=== PATIENT | female | born 1960 | race Caucasian/White ===

== ENCOUNTER → 2021-05-07 | Outpatient (CLI) | payer SELFPAY ==
--- NOTE | 2021-05-08 00:34 | MR ---
EXAMINATION TYPE: MR knee RT wo con DATE OF EXAM: 05/07/2021 COMPARISON: 05/03/2014 HISTORY: Right knee pain There is metal artifact from reconstructive surgery on the anterior cruciate ligament. The anterior c ruciate ligament appears to be intact. The posterior cruciate ligament is intact. Exam limited by met al artifact. There is some thinning of the anterior horn of the lateral meniscus with horizontal tear . There is horizontal tear in the posterior horn of the medial meniscus without extension to the serena cular surface. The collateral ligaments appear intact. There is no evidence of a fracture. There is no significant k nee joint effusion. The patella is intact. IMPRESSION: Horizontal tear of the anterior horn lateral meniscus unchanged. Intrasubstance tear of the posterior horn of the medial meniscus is unchanged. No evidence of ligamentous tear. There is overall not a si gnificant change compared to old exam.
== END | disposition home or self-care (01) ==
LOC: RADMRIMAIN 11:02
PROVIDERS: ATTEND Orthopaedic Surgery
DX: M23.341 Other meniscus derangements, anterior horn of lateral meniscus, right knee (principal); M23.321 Other meniscus derangements, posterior horn of medial meniscus, right knee

== ENCOUNTER → 2021-05-27 | Outpatient (CLI) | payer SELFPAY ==
[2021-05-27 13:09] LABS: Basophils % (A) 1 %; Eosinophils # (A) 0.1 k/uL (0-0.7); Eosinophils % (A) 1 %; HCT 41.1 % (34.0-46.0); HGB 13.4 gm/dL (11.4-16.0); Lymphocytes # (A) 1.9 k/uL (1.0-4.8); Lymphocytes % (A) 29 %; MCH 30.3 pg (25.0-35.0); MCHC 32.7 g/dL (31.0-37.0); MCV 92.7 fL (80.0-100.0); Mean Platelet Volume 7.4; Monocytes # (A) 0.3 k/uL (0-1.0); Monocytes % (A) 4 %; Neutrophils # (A) 4.3 k/uL (1.3-7.7); Neutrophils % (A) 64 %; Platelet Count 254 k/uL (150-450); RBC 4.43 m/uL (3.80-5.40); RDW 12.5 % (11.5-15.5); WBC 6.6 k/uL (3.8-10.6)
[2021-05-27 13:29] LABS: Potassium 4.1 mmol/L (3.5-5.1)
== END | disposition home or self-care (01) ==
LOC: LABPAT 12:15
PROVIDERS: ATTEND Orthopaedic Surgery
DX: Z01.812 Encounter for preprocedural laboratory examination (principal); M23.91 Unspecified internal derangement of right knee
CPT/HCPCS: 36415; 80051; 85025

== ENCOUNTER 2021-06-06 08:38 | Day surgery (SDC) | payer SELFPAY ==
[2021-06-04 15:43] VITALS: BMI 23.0
--- NOTE | 2021-06-05 12:12 | HP ---
HISTORY AND PHYSICAL CHIEF COMPLAINT: Right knee pain. HISTORY OF PRESENT ILLNESS: Patient is a 61-year-old female who presents with right knee pain for the past several months. She notes swelling, giving way, and occasional locking. She notes it significantly limits her activities. She has a history of a right knee ACL reconstruction along with a previous right knee arthroscopy. She notes the pain limits her normal function and activities. She has been limping. PAST MEDICAL HISTORY: Negative. PAST SURGICAL HISTORY: Significant for right knee ACL reconstruction with subsequent knee arthroscopy. In addition, carpal tunnel release, tubal ligation, and appendectomy. FAMILY HISTORY: Significant for cancer. SOCIAL HISTORY: Negative for current tobacco or alcohol use. CURRENT MEDICATION: Ibuprofen. ALLERGIES: She denies drug allergies. REVIEW OF SYSTEMS: 16-point review of systems otherwise is reviewed and is noncontributory. PHYSICAL EXAMINATION: On examination, the patient is approximately 5 foot 3, 130 pounds of mesomorphic habitus. HEENT exam is nonfocal. NECK is supple. She has painless passive motion of the right hip. Straight leg raise is negative. Active motion right knee -8 to 130 degrees of flexion. She has a trace effusion. She is tender about the medial greater than lateral joint line. Collaterals are stable, Fe is negative, Yesi's elicits medial pain. Her distal neurovascular exam appears intact in the right lower extremity. MRI report from 05/07/2021 of the right knee shows anterior lateral meniscal tear in addition to increased signal on the posterior horn of the medial meniscus. The ACL graft appears to be intact. IMPRESSION: 1. Internal derangement right knee with symptomatic medial and lateral meniscal tears. 2. History of ACL reconstruction. RECOMMENDATIONS: I talked to the patient at length regarding her condition and treatment options. At this point, she is quite symptomatic and opts to proceed with surgery. We will plan to proceed with arthroscopic evaluation with possible partial medial and lateral meniscectomy. We will likely perform that as an outpatient procedure. Risks and benefits were discussed at length in layman's terms. MMODL / IJN: [id number] /
[2021-06-06] MEDS ORDERED: LIDOCAINE 1% (10MG/ML) FOR IV START INTRADERMA PRN (09:07)
[2021-06-06] MEDS ORDERED: DEXAMETHASONE SOD PHOSPHATE 4 MG/ML 1 ML VIAL IV ONE (09:07)
[2021-06-06] MEDS ORDERED: LACTATED RINGERS 1,000 ML IV SCH (09:07)
[2021-06-06] MEDS ORDERED: ONDANSETRON 4 MG/2 ML VIAL IVP ONE (09:07)
[2021-06-06] MEDS ORDERED: MIDAZOLAM 2 MG/2 ML VIAL IV PRN (09:07)
[2021-06-06] MEDS ORDERED: MIDAZOLAM 2 MG/2 ML VIAL ONE (10:13)
[2021-06-06] MEDS ORDERED: EPINEPHrine (PF) 1 ML in SODIUM CHLORIDE 0.9% IRRIGATIO 3,000 ML IRRIGATION ONE ×4 (10:13)
[2021-06-06] MEDS ORDERED: LIDOCAINE 1% INJ 10MG/ML (20 ML MDV) ONE (10:13)
[2021-06-06] MEDS ORDERED: PROPOFOL 10 MG/ML 20 ML VIAL IV ONE (10:13)
[2021-06-06] MEDS ORDERED: fentaNYL (PF) 50 MCG/ML 2 ML AMP ONE (10:13)
[2021-06-06] MEDS ORDERED: KETOROLAC 15 MG/ML 1 ML VIAL ONE (10:13)
--- NOTE | 2021-06-06 11:00 | P.OP ---
Date of Procedure: 06/06/21 Preoperative Diagnosis: Right knee internal derangement Postoperative Diagnosis: Right knee anterolateral meniscal tear/grade 3 chondral injury lateral patella facet Procedure(s) Performed: Right knee arthroscopic partial lateral meniscectomy/patellar chondroplasty Anesthesia: COLTON Surgeon: Anson Mendenhall Estimated Blood Loss (ml): 10 Pathology: none sent Condition: stable Disposition: PACU Indications for Procedure: The patient is a 61-year-old female presents with progressive right knee pain and mechanical symptoms despite conservative measures. A discussion of the risks and benefits of operative intervention versus continued conservative measures was made with patient. She opted to proceed with surgery. Operative risks to include infection, neurovascular injury, development of blood clots, possible incomplete resolution of symptoms, possible worsening symptoms and need for subsequent procedures was discussed. Informed consent was obtained. Operative Findings: As below Description of Procedure: The patient was brought to the operating room, and after induction of general anesthesia examined the right knee. Collaterals were stable, Fe was negative, and posterior drawer was negative. The right lower extremity was prepped and draped in a normal fashion. A superior lateral portal was made through a 3 mm skin incision superior and lateral to the patella. This was used for outflow. A lateral portal was made through a 5 mm vertical skin incision lateral to the patella tendon above the joint line. Diagnostic arthroscopy was performed. On inspection of the medial compartment, the medial meniscus was stable and intact. Mild grade 2 chondral changes were noted diffusely.. On inspection of the notch, the anterior cruciate ligament graft appeared to be intact. On inspection of the lateral compartment, there was a complex tear involving the anterior horn of the lateral meniscus in the white-red junction. This was debrided back to stable base with straight baskets and a motorized shaver. The remaining lateral meniscus was stable and intact. Again there were diffuse grade 2 chondral changes. On inspection of the patellofemoral articulation, a grade 3 chondral injury was noted involving the lateral patellar facet. There is loose chondral fragment debrided back to a stable base with a motorized shaver.. The gutters were clear debris. The knee was then thoroughly irrigated. The portals were closed with Steri-Strips. A sterile dressing was applied in addition to a compression stocking. The patient was awoken from general anesthesia and transferred to recovery room in good condition. Blood loss was estimated at 10 mL. No complications were incurred.
[2021-06-06 11:03] VITALS: TEMP 97
[2021-06-06] MEDS: HYDROmorphone 0.5 MG/0.5 ML SYRINGE IVP PRN ×2 (11:08→11:27)
[2021-06-06 12:19] VITALS: BP 134/85; PULSE 70; RESP 16
== END 2021-06-06 13:05 | disposition home or self-care (01) ==
LOC: OR 08:38
PROVIDERS: ATTEND Orthopaedic Surgery
DX: M23.241 Derangement of anterior horn of lateral meniscus due to old tear or injury, right knee (principal); S83.31XA Tear of articular cartilage of right knee, current, initial encounter; X58.XXXA Exposure to other specified factors, initial encounter; M23.41 Loose body in knee, right knee; Z98.890 Other specified postprocedural states; K21.9 Gastro-esophageal reflux disease without esophagitis; Z98.51 Tubal ligation status; Z90.89 Acquired absence of other organs; Z80.9 Family history of malignant neoplasm, unspecified; Z79.1 Long term (current) use of non-steroidal anti-inflammatories (NSAID)
CPT/HCPCS: 29881; J2250; J1100; J2405; J0690; J0171; J2001; J3010; J1885; J2704; J1170

== ENCOUNTER → 2021-07-30 | Outpatient (CLI) | payer SELFPAY | END | disposition home or self-care (01) | LOC: LABPAT 10:06 | PROVIDERS: ATTEND Orthopaedic Surgery | DX: Z01.812 Encounter for preprocedural laboratory examination (principal); M17.11 Unilateral primary osteoarthritis, right knee; Z22.322 Carrier or suspected carrier of Methicillin resistant Staphylococcus aureus | CPT/HCPCS: 87070 ==

== ENCOUNTER 2021-08-12 08:47 | Day surgery (SDC) | payer SELFPAY ==
[2021-08-08 16:20] VITALS: BMI 24.4
--- NOTE | 2021-08-11 10:06 | HP ---
HISTORY AND PHYSICAL CHIEF COMPLAINT: Right knee pain. HISTORY OF PRESENT ILLNESS: The patient is a 61-year-old female who presents with progressive right knee pain for the past several years, worsening recently. She is having pain with any attempted weightbearing activities. She notes intermittent swelling, locking, and giving out. She has tried medications in addition to injections, with only partial temporary relief. She has had multiple arthroscopic procedures. PAST MEDICAL HISTORY: Significant for arthritis and borderline hypertension. PAST SURGICAL HISTORY: Significant for right knee ACL reconstruction along with multiple knee arthroscopies, carpal tunnel release, bilateral tubal ligation and appendectomy. CURRENT MEDICATIONS: Ibuprofen. ALLERGIES: SHE DENIES DRUG ALLERGIES. FAMILY HISTORY: Significant for cancer. SOCIAL HISTORY: Negative for current tobacco or alcohol use. REVIEW OF SYSTEMS: Sixteen-point review of systems is otherwise reviewed and noncontributory. PHYSICAL EXAMINATION: On examination, the patient is approximately 5 feet 3 inches, 128 pounds of mesomorphic habitus. HEENT exam is nonfocal. Neck is supple. She has painless passive motion of the right hip. Straight-leg raise is negative. Active motion of right knee minus 14 to 120 degrees of flexion. Fe's 1+. She is tender about the medial joint line. Collaterals are stable. Posterior drawer is negative. Her distal neurovascular exam appears intact in the right lower extremity. X-rays to include weightbearing, notch, lateral and Merchant views of the right knee obtained in the office show severe lateral compartment narrowing. IMPRESSION: 1. Right knee severe lateral compartment osteoarthrosis. 2. History of right knee ACL reconstruction with multiple arthroscopies. RECOMMENDATIONS: I talked to the patient at length regarding her condition along with treatment options. At this point she notes continued worsening of her symptoms despite adequate conservative measures. After thorough discussion, she opted to proceed with surgery. We will plan to proceed with right total knee arthroplasty. We will likely institute DVT prophylaxis postoperatively. MMODL / IJN: [id number] /
[~2021-08-12 08:47] MED LIST: ACETAMINOPHEN TAB 500 MG TAB PO PRN; DEXAMETHASONE SOD PHOSPHATE 4 MG/ML 1 ML VIAL IV ONE; HYDROmorphone 0.5 MG/0.5 ML SYRINGE IVP PRN; MELOXICAM 7.5 MG TAB PO PRN; ONDANSETRON 4 MG/2 ML VIAL IVP ONE; ROPIVACAINE/EPI/CLONIDINE/KET 50 ML SYRINGE MISCELLANE PRN; TRANEXAMIC ACID 1,000 MG in SODIUM CHLORIDE 0.9% 100 ML IVPB PRN
[2021-08-12] MEDS: LACTATED RINGERS 1,000 ML IV SCH ×2 (09:32→22:59)
[2021-08-12] MEDS ORDERED: fentaNYL (PF) 50 MCG/ML 2 ML AMP IVP ONE (10:26)
[2021-08-12] MEDS ORDERED: MIDAZOLAM 2 MG/2 ML VIAL IVP ONE (10:46)
[2021-08-12] MEDS ORDERED: fentaNYL (PF) 50 MCG/ML 2 ML AMP ONE (10:48)
[2021-08-12] MEDS ORDERED: SODIUM CHLORIDE 0.9% 100 ML BAG ONE (10:48)
[2021-08-12] MEDS ORDERED: ROPIVACAINE 5 MG/ML 30 ML VIAL ONE (10:48)
[2021-08-12] MEDS ORDERED: MIDAZOLAM 2 MG/2 ML VIAL ONE (10:48)
[2021-08-12] MEDS ORDERED: TRANEXAMIC ACID 1,000 MG/10 ML VIAL ONE (10:48)
[2021-08-12] MEDS ORDERED: PROPOFOL 10 MG/ML 20 ML VIAL IV ONE (10:48)
[2021-08-12] MEDS ORDERED: ceFAZolin 1,000 MG in SODIUM CHLORIDE 0.9% 1,000 ML IRRIGATION ONE (11:19)
[2021-08-12] MEDS ORDERED: LACTATED RINGERS 1,000 ML IV ONE (12:13)
[2021-08-12] MEDS ORDERED: HYDROmorphone 0.5 MG/0.5 ML SYRINGE IVP PRN (12:26)
[2021-08-12] MEDS ORDERED: NALOXONE 0.4 MG/ML 1 ML VIAL IV PRN (12:26)
--- NOTE | 2021-08-12 12:51 | P.OP ---
Date of Procedure: 08/12/21 Preoperative Diagnosis: Right knee severe tricompartmental osteoarthrosis Postoperative Diagnosis: Same in addition to retained hardware right proximal tibia Procedure(s) Performed: Right total knee arthroplastycementedcruciate retaining Removal hardware right proximal tibiainterference screw Implants: Depuy Attune size 5 cemented femoral component, size 4 cemented tibial component, 9 mm articular surface, 32 mm cemented patellar component. Anesthesia: spinal Surgeon: Anson Mendenhall Professional Services Manager #1: Tai Burrell Estimated Blood Loss (ml): 50 Pathology: other (Bone fragments) Condition: stable Disposition: PACU Indications for Procedure: The patient's a 61-year-old female who presents with progressive right knee pain secondary to osteoarthrosis despite conservative measures. A discussion of the risks and benefits of operative intervention versus continued conservative measures was made with patient. She opted to proceed with surgery. Operative risks to include infection, neurovascular injury, development of blood clots, fracture, component loosening/failure need for subsequent procedures was discussed. Informed consent was obtained. Operative Findings: As below Description of Procedure: The patient was brought to the operating room, and after induction of spinal anesthesia the right lower extremity was prepped and draped in a normal fashion. The tourniquet was inflated to 270 mmHg. A longitudinal incision extending 3 finger breaths above the superior pole of the patella extending to the medial aspect the tibial tubercle was then made. The skin and subcutaneous tissues were divided sharply. Electrocautery was used for hemostasis. A medial parapatellar arthrotomy was then performed. The medial soft tissues to include the superficial and deep portions of the medial collateral ligament as well as the medial hamstring tendons were elevated subperiosteally. The proximal medial tibia osteophytes were carefully removed. The patella was everted. The knee was flexed. A portion of the retropatellar fat pad was excised sharply. The anterior cruciate ligament was sacrificed. A starting hole was made in the distal femur 1 cm anterior to the posterior cruciate origin. An intramedullary femoral guide was gently inserted planning on 5 valgus distal cut with 9 mm distal resection. The cutting block was pinned in place. The distal cut was then made. The posterior referencing sizing guide was utilized. 3 of external rotation was built into the system and verified off the trans- epicondylar axis and the posterior condyles. I felt size 5 narrow was most appropriate. The cutting block was pinned in place. The anterior, posterior, and chamfer cuts were then made. The bone fragments were removed. A sulcus cut was then made with the appropriate guide. The trial size 5 narrow femoral component was then placed and was fully seated. There was good anterior to posterior and medial to lateral fit. The distal peg holes were then drilled. The trial component was then removed. Attention was then paid towards preparing the proximal tibia. An extra medullary guide was utilized in line with the tibial shaft and second metatarsal distally. A 7 posterior slope was planned. I planned on 2 mm resection from the medial compartment. The cutting block was pinned in place. The proximal tibial cut was then made. The bone was removed in one fragment. The remnants of the medial and lateral menisci were excised the capsule junction with electrocautery. The tibia sized most appropriately at size for. The posterior osteophytes off the distal femur were carefully removed with a curved osteotome. The trial tibial and femoral components were placed along with a 9 millimeters articular surface. I was able to obtain full flexion and extension with good stability with varus and valgus stress. After several flexion and extension cycles, the tibial rotation was marked with electrocautery in line with the medial one third of the tibial tubercle. Attention was then paid towards preparing the patella. A patella reamer was utilized taking this down to 14 mm of bone stock. A good flush cut was made. The patella sized most appropriately at 32 millimeters. The peg holes were then drilled. The trial component was placed. The knee was taken through a range of motion. I had good patellofemoral tracking with no hands technique. The trial components were then removed. The tibia was prepared in the appropriate rotation with appropriate drill and keel punch after removal of the proximal tibial interference screw. The flexion and extension gaps were checked and felt to be symmetric. The bony surfaces were prepared with pulsatile lavage and dried. The deep tibial component was then cemented in place and was fully seated. Excess cement was removed. The femoral component was cemented in place and was fully seated. Again excess cement was removed. The trial 9 millimeters surface was then inser joya in the knee was put in full extension. The patella component was cemented in place. After the cement had sufficiently hardened, the knee was again taken through a range of motion. Again there was good stability in flexion and extension with varus and valgus stress. The trial articular surface was then removed. The final articular surface was placed and was impacted. Care was taken to avoid any soft tissue interposition. Pulsatile lavage was again utilized. The tourniquet was deflated with approximately 60 minutes total tourniquet time. There was minimal drainage therefore a deep drain was not placed. The medial parapatellar arthrotomy was then closed with #2 Ethibond suture. The subcutaneous tissues were reapproximated interrupted 2-0 Vicryl sutures. The skin was reapproximated with 3-0 subarticular strata fix suture. Skin tape and adhesive was applied. A sterile dressing was applied. The patient was then awoken from sedation and transferred to recovery room in good condition. Blood loss was estimated at 50 milliliters. No complications were incurred. Sponge and needle counts were correct at the end the case. Tai JOHNSON assisted during the major components this case to include exposure, bone resection, and implantation.
[2021-08-12] MEDS ORDERED: ROPIVACAINE 0.2%-NS ON-Q PUMP 1,090 MG, EMPTY PAIN BALL 1 EACH MISCELLANE PRN (13:00)
--- NOTE | 2021-08-12 13:02 | P.ANPRN ---
Procedure Note - Anesthesia - Nerve Block Performed Right Adductor Canal Time Out Performed: Yes (:) Date of Procedure: 08/12/21 Procedure Start Time: Procedure Stop Time: :40 Location of Patient: PreOp Indication: Acute Post-Operative Pain, Requested by Surgeon (Dr Mendenhall) Sedation Type: Sedate with meaningful contact maintained Preparation: Sterile Prep, Sterile Dressing Position: Supine Catheter: Indwelling Needle Types: Pajunk Needle Gauge: 21 Ultrasound used to visualize needle placement: Yes Ultrasound used to observe medication spread: Yes Injectate: 0.5% Ropivacaine (see comment for volume) (15cc) Blood Aspirated: No Pain Paresthesia on Injection Noted: No Resistance on Injection: Normal Image Stored and Saved: Yes Events: Uneventful and Well Tolerated
--- NOTE | 2021-08-12 13:04 | P.ANPRN ---
Procedure Note - Anesthesia - Nerve Block Performed Right iPack Time Out Performed: Yes (:41) Date of Procedure: 08/12/21 Procedure Start Time: Procedure Stop Time: :45 Location of Patient: PreOp Indication: Acute Post-Operative Pain, Requested by Surgeon (Dr Mendenhall) Sedation Type: Sedate with meaningful contact maintained Preparation: Sterile Prep Position: Supine Catheter: None Needle Types: Pajunk Needle Gauge: 21 Ultrasound used to visualize needle placement: Yes Ultrasound used to observe medication spread: Yes Injectate: 0.5% Ropivacaine (see comment for volume) (15cc) Blood Aspirated: No Pain Paresthesia on Injection Noted: No Resistance on Injection: Normal Image Stored and Saved: Yes Events: Uneventful and Well Tolerated
[2021-08-12 13:06] VITALS: RESP 16
--- NOTE | 2021-08-12 13:36 | XR ---
EXAMINATION TYPE: XR knee limited RT DATE OF EXAM: 08/12/2021 CLINICAL HISTORY: Right knee pain and arthritis status post total knee replacement. TECHNIQUE: Portable AP and crosstable lateral views of the right knee are obtained immediately posto peratively. COMPARISON: Outside right knee x-ray April 23, 2021 FINDINGS: Metallic hardware from total right knee arthroplasty is seen and appears satisfactory in a lignment and position. There is evidence of recent surgery with diffuse subcutaneous gas and soft ti ssue swelling noted. Retained screw fragment in the distal femur incidentally noted. IMPRESSION: METALLIC HARDWARE FROM TOTAL RIGHT KNEE ARTHROPLASTY IS SATISFACTORY IN ALIGNMENT.
[2021-08-12] MEDS: HYDROcodone/APAP 5-325MG 1 EACH TAB PO PRN (18:07)
[2021-08-12] MEDS ORDERED: SENNOSIDES-DOCUSATE SODIUM 1 EACH TAB PO SCH (21:00)
[2021-08-13] MEDS: HYDROcodone/APAP 5-325MG 1 EACH TAB PO PRN (00:23)
[2021-08-13] MEDS: HYDROcodone/APAP 7.5-325MG 1 EACH TAB PO PRN ×2 (05:57→11:46)
[2021-08-13] MEDS ORDERED: ENOXAPARIN 30 MG/0.3 ML SYRINGE SQ SCH (09:00)
[2021-08-13 09:01] LABS: Basophils # (A) 0.03 X 10*3/uL (0.00-0.10); Basophils % (A) 0.3 %; Eosinophils # (A) 0.02 X 10*3/uL (0.04-0.35); Eosinophils % (A) 0.2 %; HCT 33.1 % (37.2-46.3); HGB 10.7 g/dL (12.0-15.0); Lymphocytes # (A) 2.65 X 10*3/uL (0.90-5.00); MCH 29.8 pg (27.0-32.0); MCHC 32.3 g/dL (32.0-37.0); MCV 92.2 fL (80.0-97.0); Mean Platelet Volume 9.9 fL (9.5-12.2); Monocytes % (A) 7.7 %; Neutrophils # (A) 5.72 X 10*3/uL (1.80-7.70); Neutrophils % (A) 62.6 %; Platelet Count 249 X 10*3/uL (140-440); RBC 3.59 X 10*6/uL (4.10-5.20); RDW 12.5 % (11.5-14.5); WBC 9.14 X 10*3/uL (4.50-10.00)
--- NOTE | 2021-08-13 10:44 | P.PN ---
Progress Note - Text Progress Note Date: 08/13/21 Patient had a history of right side total knee arthroplasty . Patient had addu ctor canal catheter with ropivacaine medication incision for postoperative pain control. Today is Postoperative day # 1. Patient had no motor / sensory deficit. Catheter site dressing intact, no fluid leaking , no tenderness over dressing. Vital signs stable VAS 5-6 /10 , with activity and pain levels are 8-9 out of 10 in severity. With the help of [place] 7.5/325 helping along with adductor canal catheter infusion medications. Assessment and plan= post operative day # 1 . patient doing well , pain well controlled , there is no anesthesia related complications. continue the adductor canal catheter infusion with the current rate.
--- NOTE | 2021-08-13 11:44 | P.DS ---
Providers Date of admission: 08/12/2021 Expected date of discharge: 08/13/21 Attending physician: Anson Mendenhall Consults: 08/12/21 12:30 Consult Physician Routine Consulting Provider: Royer Soler Consult Reason/Comments: Medical Management s/p right total knee arthroplasty Do you want consulting provider notified?: Yes Primary care physician: Henry Rubalcava Hospital Course: Date of admission: 08/12/2021 Date of discharge: 08/13/2021 Admission diagnosis: Right knee osteoarthritis Discharge diagnosis: And Attending physician: Dr. Mendenhall Surgical procedures: Right total knee arthroplasty Brief history: Patient is a 61-year-old female with a history of progressive primary right knee osteoarthritis. At this point patient has failed conservative treatment measures and has opted to proceed with a elective right total knee arthroplasty. Hospital course: Details of patient's surgery can be found in operative report. Patient tolerated the procedure well and was subsequently transported to orthopedic floor. Patient's orthopeidc and medical care was provided daily. Patient had daily laboratory tests performed for evaluation of overall blood counts. Patient had daily physical therapy to include strengthening range of motion as well as education with walker ambulation. Patient was treated with Lovenox for their postoperative DVT prophylaxis during their inpatient stay. Patient was noted to have a relatively uneventful postoperative course. Patient reported satisfactory pain control with oral pain medications by postoperative day 1. Patient showed satisfactory progress with physical therapy. Patient moved steadily through the program and had no difficulty meeting the goals by postoperative day 1. Given patient's otherwise satisfactory course and having met physical therapy goals, plan is to discharge patient home on postoperative day 1. Discharge condition/disposition: Patient will be discharged home in stable condition. Discharge medications: Instructions are given on resumption of patient's normal daily medications per primary care recommendation, in addition patient will be prescribed [place] 7.5 mg/325 mg; patient has aspirin at home - 81 mg twice a day 30 days. Discharge instructions: 1. Wound care and infection precautions, keep incision dry and covered while showering, no lotions, creams, moisturizers. No soaking, tubs, pools, hottubs. Do not scrub over the incision. 2. Weight-bear as tolerated with walker / cane until follow-up. 3. Ice and elevate when necessary. Do not exceed 20 minutes per hour with ice pack. 4. Utilize compression sleeve until seen at first follow up appointment. 5. Visiting nursing care. 6. Home physical therapy including home CPM. 7. Pain meds and anticoagulants per prescription. 8. Pain medication has potential to cause constipation. Increase oral fluid and fiber intake. Contact primary care provider if you have not had a bowel movement within 48 hours after discharge 9. No anti-inflammatory medication until discussed at first post operative visit, this including Motrin, Aleve, Mobic, Diclofenac. 10. Follow up in office at 2 weeks postop with Denis Traylor PA-C / Tai Burrell PA-C 11. Follow up with your primary care doctor 7-10 days after discharge. 12. Contact [facility] with any questions, . Assessment: Right knee osteoarthritis Procedures: Right total knee arthroplasty Plan - Discharge Summary Discharge Rx Participant: Yes New Discharge Prescriptions: New Aspirin [Adult Low Dose Aspirin EC] 81 mg PO BID #60 tab HYDROcodone/APAP 7.5-325MG [[place] 7.5] 1 each PO Q6HR PRN #24 tab PRN Reason: Pain No Action Multivitamins, Thera [Multivitamin (formulary)] 1 tab PO DAILY Magnesium Cleanse 1 dose PO DAILY Cholecalciferol [Vitamin D3 (25 Mcg = 1000 Iu)] 25 mcg PO DAILY Zinc 25 mg PO DAILY Ascorbic Acid [Vitamin C] 1,000 mg PO DAILY L.acidoph,Paracasei, B.lactis [Probiotic] 1 each PO DAILY Acetaminophen [Tylenol] 500 - 1,000 mg PO Q4-6H PRN PRN Reason: Pain Ubidecarenone [Co Q-10] 200 mg PO DAILY Discharge Medication List Ascorbic Acid [Vitamin C] 1,000 mg PO DAILY 06/04/21 [History] Cholecalciferol [Vitamin D3 (25 Mcg = 1000 Iu)] 25 mcg PO DAILY 06/04/21 [History] L.acidoph,Paracasei, B.lactis [Probiotic] 1 each PO DAILY 06/04/21 [History] Magnesium Cleanse 1 dose PO DAILY 06/04/21 [History] Multivitamins, Thera [Multivitamin (formulary)] 1 tab PO DAILY 06/04/21 [History] Acetaminophen [Tylenol] 500 - 1,000 mg PO Q4-6H PRN 08/11/21 [History] Ubidecarenone [Co Q-10] 200 mg PO DAILY 08/11/21 [History] Zinc 25 mg PO DAILY 08/11/21 [History] Aspirin [Adult Low Dose Aspirin EC] 81 mg PO BID #60 tab 08/13/21 [Rx] HYDROcodone/APAP 7.5-325MG [[place] 7.5] 1 each PO Q6HR PRN #24 tab 08/13/21 [Rx] Follow up Appointment(s)/Referral(s): Tai Burrell, RAMON [PHYSICIAN WAITER/WAITRESS ROOM SERVICE] - 08/28/21 9:40 am [facility],Equipment [NON-STAFF] - As Needed (Supplier of CPM) Henry Rubalcava MD [Primary Care Provider] - 08/18/21 11:30 am Patient Instructions/Handouts: *Surgery [facility] - On-Q Pain Pump Discharge Instructions, How to Use an Incentive Spirometer (DC), Joint Replacement Surgery (DC) Activity/Diet/Wound Care/Special Instructions: Orthopedic Discharge Instructions: 1. Wound care and infection precautions, keep incision dry and covered while showering, no lotions, creams, moisturizers. No soaking, pools, hot tubs. Do not scrub over incision. 2. Weight-bear as tolerated with walker / cane until follow-up. 3. Ice and elevate when necessary. Do not exceed 20 minutes per hour with ice pack. 4. Utilize compression sleeve until seen at first follow up appointment. 5. Pain meds and anticoagulants per prescription. 6. Pain medication has potential to cause constipation. Increase oral fluid and fiber intake. Contact primary care provider if you have not had a bowel movement within 48 hours after discharge. 7. No anti-inflammatory medication until discussed at first post operative visit, this including Motrin, Aleve, Mobic, Diclofenac. 8. Follow up in office at 2 weeks postop with Denis Traylor PA-C / Tai Burrell PA-C 9. Follow up with your primary care doctor 7-10 days after discharge. 10. Contact [facility] with any questions, . Keep mesh tape on until visit and office in 2 weeks. While showering, cover mesh tape with Saran wrap. Take 81 mg aspirin twice a day 30 days for DVT prophylaxis
--- NOTE | 2021-08-13 11:48 | P.PN ---
Subjective Progress Note Date: 08/13/21 Principal diagnosis: Right knee osteoarthritis Patient was seen at bedside this morning. Patient says she is having pain mostly at the backside of her knee. Patient says PT went well this morning. She says she walked to lora and up and down a couple steps. Patient says she has not had bowel movement yet, but has passed gas. Patient says she would like to go home today. She says she would prefer to begin PT in the outpatient therapy. She says she discussed this with child welfare caseworker. Patient denies chest pain, fever, SOB, N/V. Objective - Vital Signs Vital signs: Vital Signs Temp 98.2 F 08/13/21 07:34 Pulse 78 08/13/21 09:28 Resp 16 08/13/21 09:28 BP 122/72 08/13/21 07:34 Pulse Ox 95 08/13/21 07:34 Intake & Output 08/12/21 08/13/21 08/13/21 18:59 06:59 18:59 Intake Total 1741 596 Output Total 50 Balance 1691 596 Weight 61 kg Intake: IV 1201 Oral 540 596 Output: Estimated Blood Loss 50 Other: Voiding Method Toilet Toilet # Voids 2 1 - Exam Right knee: Incision is clean, dry, and intact. The exofin fusion tape is in good condition. There is minimal soft tissue swelling and ecchymosis surrounding the medial and lateral aspects of the incision. Calf is soft, no tenderness with palpation. Plantar flexion, dorsiflexion, EHL, FHL are intact. Sensory exam to light touch throughout the extremity is intact, dorsal pedis pulses 2+. - Labs CBC & Chem 7: 08/13/21 06:17 Labs: Abnormal Lab Results - Last 24 Hours (Table) 08/13/21 Range/Units 06:17 RBC 3.59 L (4.10-5.20) X 10*6/uL Hgb 10.7 L (12.0-15.0) g/dL Hct 33.1 L (37.2-46.3) % Eosinophils # 0.02 L (0.04-0.35) X 10*3/uL Assessment and Plan Assessment: Right knee osteoarthritis Plan: 1. Right knee osteoarthritis - right total knee arthroplasty performed yesterday, 08/12/2020. Patient stable at bedside this morning and discharge home today 2. Appreciate medical management 3. Pain management - stable at this time. Going home with [place] 7.5 mg/325 mg 4. DVT prophylaxis - Lovenox in hospital. To take aspirin 81 mg twice a day 30 days at home 5. GI prophylaxis - senna 6. Encourage incentive spirometer use 7. PT/OT - weightbearing as tolerated walker for assistance 8. Discharge planning - plan discharge home today Time with Patient: Less than 30
[2021-08-13] MEDS ORDERED: HYDROcodone/APAP 7.5-325MG 1 EACH TAB PO PRN (11:57)
[2021-08-13] MEDS ORDERED: hydrOXYzine pamoate 25 MG CAP PO PRN (11:58)
--- NOTE | 2021-08-13 12:28 | P.CONS ---
History of Present Illness - Reason for Consult Consult date: 08/12/21 Medical Management - History of Present Illness This is a pleasant 61-year-old female who came into the hospital today for a planned right total knee arthroplasty, she is postop day 1. Patient is evaluated today at the bedside, she denies any cough or shortness of breath, chest pain, palpitations, nausea, vomiting or diarrhea. Patient has a past medical history for hyperlipidemia which she states is a genetic condition, her mother also hyperlipidemia which she was on a statin for for many years. Patient recently lost both her parents in the last 5 weeks. Her mother to a twisted bowel and liver disease, her father with a history of dementia shortly after attributed to a broken heart syndrome. Additional history is for a remote history of skin cancer with removal on her, as well as a blood clot and IV site in 1981. Patient does have past surgical history, appendectomy, tubal ligation, orthopedic surgery with a CTR to her left breast as well as right knee 5. Patient has had postoperative nausea and vomiting after anesthesia and her medical history however she does not have any complaints to day. She is an ex-smoker. Patient does state some mild nasal congestion today she states that she has been crying frequently and there is some erythema in her nasal cavities. She is using Flonase at the bedside which is okay. Labs reviewed today include a hemoglobin of 10.7 which can be expected after surgery. COVID is not detected. Vital signs include a temp of 98.2, heart rate 70 sinus rhythm, blood pressure 122/72 inches 95% on room air. Patient is getting up with physical therapy without difficulty. She is urinating without difficulty. She states that she is passing gas, she's not had a bowel movement yet however patient states that his only been one to 2 days and she will be able to go when she returns home. REVIEW OF SYSTEMS: CONSTITUTIONAL: No fever, no malaise, no fatigue. HEENT: No recent visual problems or hearing problems. Denied any sore throat. CARDIOVASCULAR: No chest pain, orthopnea, PND, no palpitations, no syncope. PULMONARY: No shortness of breath, no cough, no hemoptysis. GASTROINTESTINAL: No diarrhea, no nausea, no vomiting, no abdominal pain. NEUROLOGICAL: No headaches, no weakness, no numbness. HEMATOLOGICAL: Denies any bleeding or petechiae. GENITOURINARY: Denies any burning micturition, frequency, or urgency. MUSCULOSKELETAL/RHEUMATOLOGICAL: Denies any numbness or tingling, reports some mild pain to her right knee joint as well as some swelling in the ankle. ENDOCRINE: Denies any polyuria or polydipsia. The rest of the 14-point review of systems is negative. PHYSICAL EXAMINATION: GENERAL: The patient is alert and oriented x3, not in any acute distress. Well developed, well nourished. HEENT: Pupils are round and equally reacting to light. EOMI. No scleral icterus. No conjunctival pallor. Normocephalic, atraumatic. No pharyngeal erythema. No thyromegaly. CARDIOVASCULAR: S1 and S2 present. No murmurs, rubs, or gallops. PULMONARY: Chest is clear to auscultation, no wheezing or crackles. ABDOMEN: Soft, nontender, nondistended, normoactive bowel sounds. No palpable organomegaly. MUSCULOSKELETAL: No joint swelling or deformity. EXTREMITIES: No cyanosis, clubbing, or pedal edema. NEUROLOGICAL: Gross neurological examination did not reveal any focal deficits. SKIN: No rashes. Assessment and plan Postop day #1 right total knee arthroscopy Right knee osteoarthritis Hyperlipidemia -Rhinitis -DVT prophylaxis Lovenox -Mild constipation Full code Patient is medically cleared for discharge. She'll follow up with PT OT orthopedics and primary care. Recommend continue with [id number] Flonase for her rhinitis. She'll be discharged home on [place] for pain management as well as aspirin 81 mg twice a day for 30 days for DVT prophylaxis. Continue to use IS. Thank you kindly for this consultation. Past Medical History Past Medical History: Cancer, Hyperlipidemia, Osteoarthritis (OA) Additional Past Medical History / Comment(s): Hx of blood clot at IV site in 1981. Hx skin cancer. History of Any Multi-Drug Resistant Organisms: None Reported Past Surgical History: Appendectomy, Orthopedic Surgery, Tubal Ligation Additional Past Surgical History / Comment(s): CTR-LEFT WRIST, right knee X5, with screws, nose skin cancer removed. Past Anesthesia/Blood Transfusion Reactions: Previous Problems w/ Anesthesia, Postoperative Nausea & Vomiting (PONV) Additional Past Anesthesia/Blood Transfusion Reaction / Comm: Dizzy and nauseated after. Past Psychological History: No Psychological Hx Reported Smoking Status: Former smoker Past Alcohol Use History: None Reported Additional Past Alcohol Use History / Comment(s): Quit smoking 15 yrs ago. Past Drug Use History: None Reported - Past Family History Mother Family Medical History: No Reported History Medications and Allergies Home Medications Medication Instructions Recorded Confirmed Type Ascorbic Acid [Vitamin C] 1,000 mg PO DAILY 06/04/21 08/11/21 History Cholecalciferol [Vitamin D3 (25 25 mcg PO DAILY 06/04/21 08/11/21 History Mcg = 1000 Iu)] L.acidoph,Paracasei, B.lactis 1 each PO DAILY 06/04/21 08/11/21 History [Probiotic] Magnesium Cleanse 1 dose PO DAILY 06/04/21 08/11/21 History Multivitamins, Thera [Multivitamin 1 tab PO DAILY 06/04/21 08/11/21 History (formulary)] Acetaminophen [Tylenol] 500 - 1,000 mg PO Q4-6H PRN 08/11/21 08/11/21 History Ubidecarenone [Co Q-10] 200 mg PO DAILY 08/11/21 08/11/21 History Zinc 25 mg PO DAILY 08/11/21 08/11/21 History Aspirin [Adult Low Dose Aspirin EC] 81 mg PO BID #60 tab 08/13/21 Rx HYDROcodone/APAP 7.5-325MG [[place] 1 each PO Q6HR PRN #24 tab 08/13/21 Rx 7.5] Allergies Allergy/AdvReac Type Severity Reaction Status Date / Time No Known Allergies Allergy Verified 08/12/21 09:09 Physical Exam Vitals: Vital Signs Temp Pulse Pulse Resp BP Pulse Ox 08/13/21 07:34 98.2 F 78 16 122/72 95 08/13/21 02:00 98.9 F 86 16 128/80 95 08/12/21 19:35 98.1 F 91 16 161/77 92 L 08/12/21 18:52 16 08/12/21 14:34 98.2 F 87 16 158/89 94 L 08/12/21 14:04 78 16 160/74 97 08/12/21 13:35 64 16 157/77 97 08/12/21 13:20 63 16 155/70 100 08/12/21 13:05 70 16 153/80 100 08/12/21 12:49 96.9 F L 75 14 137/86 99 08/12/21 10:44 80 15 159/84 100 08/12/21 09:10 97.1 F L 91 15 181/97 95 Intake and Output 08/12/21 08/13/21 08/13/21 22:59 06:59 14:59 Intake Total 540 596 Balance 540 596 Intake: Oral 540 596 Other: Voiding Method Toilet # Voids 2 1 Results CBC & Chem 7: 08/13/21 06:17 Labs: Abnormal Lab Results - Last 24 Hours (Table) 08/13/21 Range/Units 06:17 RBC 3.59 L (4.10-5.20) X 10*6/uL Hgb 10.7 L (12.0-15.0) g/dL Hct 33.1 L (37.2-46.3) % Eosinophils # 0.02 L (0.04-0.35) X 10*3/uL Assessment and Plan Time with Patient: Greater than 30
[2021-08-13 14:13] VITALS: BP 121/74; PULSE 92; TEMP 98
[2021-08-13 18:57] LABS: BUN/Creat Ratio 17.73 Ratio (12.00-20.00)
[2021-08-13 18:58] LABS: African American GFR (CKD) 125.4 (60.0-200.0); Anion Gap 12.8 mmol/L (4.00-12.00); Calcium 9.1 mg/dL (8.7-10.3); Carbon Dioxide 25.7 mmol/L (21.6-31.8); Non-African American GFR(CKD) 108.2 (60.0-200.0); Potassium 3.9 mmol/L (3.5-5.5)
== END 2021-08-13 16:34 | disposition home health service (06) ==
LOC: OR 08:47 → 4SSUR 12:46 → OR 08-13 16:34
PROVIDERS: ATTEND Orthopaedic Surgery
DX: M17.11 Unilateral primary osteoarthritis, right knee (principal); M25.761 Osteophyte, right knee; Z44.9 Encounter for fitting and adjustment of unspecified external prosthetic device; R03.0 Elevated blood-pressure reading, without diagnosis of hypertension; Z80.9 Family history of malignant neoplasm, unspecified; E78.5 Hyperlipidemia, unspecified; Z20.822 Contact with and (suspected) exposure to COVID-19; Z98.890 Other specified postprocedural states; Z85.828 Personal history of other malignant neoplasm of skin; Z98.51 Tubal ligation status; Z79.1 Long term (current) use of non-steroidal anti-inflammatories (NSAID); Z83.79 Family history of other diseases of the digestive system; Z87.891 Personal history of nicotine dependence; Z79.82 Long term (current) use of aspirin; Z79.899 Other long term (current) drug therapy; J31.0 Chronic rhinitis; Z90.49 Acquired absence of other specified parts of digestive tract; Z81.8 Family history of other mental and behavioral disorders
CPT/HCPCS: 97161; 64999; 64448; 76942; 80048; 85025; 88300; 87635; 73560; 27447; C1713 ×2; C1776; J2250; J1100; J0690 ×3; J2405; J3010; J1650; J2795 ×2; J2704

== ENCOUNTER → 2023-09-15 | Outpatient (CLI) | payer SELFPAY ==
[2023-09-15 17:28] LABS: Chol/HDL Ratio 5.17 Ratio; LDL Cholesterol,Calculated 210.5 mg/dL (0.0-131.0)
== END | disposition home or self-care (01) ==
LOC: LABWHC1 08:11
PROVIDERS: ATTEND Obstetrics & Gynecology
DX: Z13.220 Encounter for screening for lipoid disorders (principal); E55.9 Vitamin D deficiency, unspecified
CPT/HCPCS: 36415; 80061; 82306

== ENCOUNTER → 2023-09-22 | Outpatient (CLI) | payer SELFPAY ==
--- NOTE | 2023-09-23 17:02 | MM ---
Reason for Exam: Screening (asymptomatic). Patient History: Menarche at age 12. First Full-Term at age 17. Postmenopausal. Risk Values: Janey 5 year model risk: 1.1%. NCI Lifetime model risk: 4.9%. Prior Study Comparison: No prior studies available for comparison. Tissue Density: There are scattered fibroglandular densities. Findings: Analyzed By CAD. Pattern appears symmetrical. Benign vascular calcification is present within the right breast. No suspicious groups of microcalcifications, spiculated or lobular masses, architectural distortion or other secondary signs of malignancy are mammographically apparent. Overall Assessment: Benign, BI-RAD 2 Management: Screening Mammogram of both breasts in 1 year. A negative mammogram report should not preclude additional follow up of suspicious palpable abnormalities. Patient should continue monthly self breast exam. A clinical breast exam by your physician is recommended on an annual basis and results should be correlated with mammographic findings. Electronically signed and approved by: Fermin Hendricks D.O. Radiologis
== END | disposition home or self-care (01) ==
LOC: RADMAMWWP 13:33
PROVIDERS: ATTEND Obstetrics & Gynecology
DX: Z12.31 Encounter for screening mammogram for malignant neoplasm of breast (principal); Z78.0 Asymptomatic menopausal state
CPT/HCPCS: 77063; 77067

== ENCOUNTER → 2023-09-22 | Outpatient (CLI) | payer SELFPAY ==
[2023-09-22 16:32] LABS: ALT 23 U/L (8-44); AST 18 U/L (13-35); Albumin 4.9 g/dL (3.8-4.9); Albumin/Globulin Ratio 2.23 Ratio (1.60-3.17); Alkaline Phosphatase 93 U/L (41-126); Blood Urea Nitrogen 14.4 mg/dL (9.0-27.0); Calcium 10.4 mg/dL (8.7-10.3); Carbon Dioxide 29.9 mmol/L (21.6-31.8); Chloride 99 mmol/L (96-109); Globulin 2.2 g/dL (1.6-3.3); Glucose 93 mg/dL (70-110); Potassium 4.4 mmol/L (3.5-5.5); Sodium 141 mmol/L (135-145); Total Bilirubin 0.3 mg/dL (0.3-1.2); Total Protein 7.1 g/dL (6.2-8.2)
== END | disposition home or self-care (01) ==
LOC: LABWHC1 10:44
PROVIDERS: ATTEND Family Medicine
DX: I10 Essential (primary) hypertension (principal)
CPT/HCPCS: 36415; 80053